=== PATIENT | female | born 1990 | race Hispanic/Latino ===

== ENCOUNTER 2018-01-19 14:59 | Emergency (ER) | payer OTHER, SELFPAY ==
[2018-01-19 15:02] VITALS: BP 123/82; PULSE 83; RESP 15; TEMP 36.3; O2SAT 91
--- NOTE | 2018-01-19 16:40 | ED.GENADULT ---
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 She states that an NG tube was being pulled when it flipped around causing some small amount of bodily fluids to be sprayed in her eyes. Source patient is not noted to be hepatitis or HIV positive. Patient states that her hepatitis B titers and shots are up-to-date. She also reports that her tetanus is up-to-date. She denies any other exposures or concerns at this time. Source labs and paperwork is being completed to patient upstairs Related Data Home Medications Medication Instructions Recorded Confirmed multivitamin with folic acid 1 tab PO DAILY 01/19/18 01/19/18 Allergies Allergy/AdvReac Type Severity Reaction Status Date / Time No Known Drug Allergies Allergy Verified 01/19/18 15:02 Review of Systems <JUAN Carranza - Last Filed: 01/19/18 21:48> Review of Systems Exposure to bodily fluids All systems reviewed & are unremarkable except as noted in HPI and below Constitutional Denies chills, Denies fatigue, Denies fever(s), Denies lethargy and Denies weakness Eyes Denies change in vision, Denies eye discharge, Denies irritation and Denies loss of vision ENT Ears, Nose, Mouth, and Throat: Denies change in voice, Denies neck pain and Denies sore throat Cardiovascular Denies dyspnea and Denies dyspnea on exertion Respiratory Denies cough, Denies dyspnea, Denies dyspnea on exertion and Denies wheezing Gastrointestinal Gastrointestinal: Denies abdominal pain, Denies change in bowel habits, Denies diarrhea, Denies nausea and Denies vomiting Genitourinary Denies hematuria, Denies flank pain, Denies urinary incontinence and Denies urinary urgency Musculoskeletal Denies neck pain Integumentary/Breasts Denies pruritus, Denies erythema, Denies rash and Denies wounds Neurologic Denies confusion, Denies loss of vision and Denies weakness Psychiatric Denies anxiety, Denies confusion, Denies depression, Denies homicidal ideation and Denies suicidal ideation Endocrine Denies fatigue and Denies flushing Allergic/Immunologic Denies wheezing Exam <JUAN Carranza - Last Filed: 01/19/18 21:48> Initial Vital Signs Initial Vital Signs: Vital Signs Temperature 97.4 F L 01/19/18 15:02 Pulse Rate 83 01/19/18 15:02 Respiratory Rate 15 01/19/18 15:02 Blood Pressure 123/82 01/19/18 15:02 Pulse Oximetry 91 01/19/18 15:02 Const General: cooperative and well developed Nutritional Appearance: well nourished Orientation: alert, awake, oriented x3 and not confused HENWV Mouth: oral mucosae normal and moist mucous membranes Eyes General: appearance normal, both eyes and all related structures Eyelids: eyelids normal Conjunctivae: conjunctivae normal Sclera: sclerae normal Pupils: PERRL EOM: EOM intact bilaterally Resp Effort & Inspection: normal respiratory effort, able to speak in complete sentences, no respiratory distress and no use of accessory muscles Auscultation: clear to auscultation bilaterally, no rales, no rhonchi and no wheezes Cardio Rate: regular rate Rhythm: regular rhythm Heart Sounds: no click, no gallops, no murmurs and no rubs Pulses: normal peripheral pulses Skin General: no rashes or lesions noted, No jaundice and No petechiae Neuro General: alert, oriented x3, gait normal and no focal motor deficits Speech: speech normal <Casey Isaac DO - Last Filed: 01/20/18 01:12> Initial Vital Signs Initial Vital Signs: Vital Signs Temperature 97.4 F L 01/19/18 15:02 Pulse Rate 83 01/19/18 15:02 Respiratory Rate 15 01/19/18 15:02 Blood Pressure 123/82 01/19/18 15:02 Pulse Oximetry 91 01/19/18 15:02 Course <JUAN Carranza - Last Filed: 01/19/18 21:48> Orders Ordered: ED Orders 01/19/18 17:37 Alanine Aminotransferase Stat HIV 1 and 2 Antibody Stat Hepatitis Acute Panel Stat Vital Signs - 8 hr 01/19/18 18:38 Pulse Rate 81 Respiratory Rate 18 Blood Pressure [Left Arm] 119/81 Pulse Oximetry 100 <Casey Isaac DO - Last Filed: 01/20/18 01:12> Orders Ordered: ED Orders 01/19/18 17:37 Alanine Aminotransferase Stat HIV 1 and 2 Antibody Stat Hepatitis Acute Panel Stat Vital Signs - 8 hr 01/19/18 18:38 Pulse Rate 81 Respiratory Rate 18 Blood Pressure [Left Arm] 119/81 Pulse Oximetry 100 Medical Decision Making <Lyle LindquistJUAN holley - Last Filed: 01/19/18 21:48> Lab Data Lab Results 01/19/18 01/19/18 Range/Units 17:37 17:37 ALT 69 H (9-52) IU/L HIV 1&2 Antibody Negative (NEGATIVE) MDM Narrative Medical decision making narrative: Small amount of bodily fluids exposure to the mucous membranes of the eyes. Patient irrigated her eyes well after the incident. Patient is not known to be says HIV or hepatitis positive. Low risk of infection at this point. Prophylaxis medications not desired at this timeframe. Hepatitis and HIV labs were drawn and are pending. Patient to follow up with employee health for further evaluation. For any worsening symptoms return emergency room. <Casey Isaac DO - Last Filed: 01/20/18 01:12> Lab Data Lab Results 01/19/18 01/19/18 Range/Units 17:37 17:37 ALT 69 H (9-52) IU/L HIV 1&2 Antibody Negative (NEGATIVE) Discharge Plan Departure Patient Disposition: Home Clinical Impression: History of exposure to hazardous bodily fluids Discharge Date/Time: 01/19/18 18:38 Interventions: ED Discharge Assessment Last Done: 01/19/18 18:38 Instructions: DI for Accidental Exposure to Body Fluids Activity Restrictions/Additional Instructions: Low risk of infection today will hold on prophylactic medications. Laboratory results and titers for hepatitis and HIV were drawn today and are pending. Follow up with [facility] in the next few days for re-evaluation. Source patient labs are also being drawn. For any worsening symptoms return to the emergency room. Prescriptions: No Action multivitamin with folic acid 400 mcg Tablet 1 tab PO DAILY RF: 0 Referrals: Marcial Beck MD [Primary Care Provider] - <Casey Isaac DO - Last Filed: 01/20/18 01:12> Cosign ED Attending Coscruzature Attestation: I was immediately available in the department for consultation. Documentation has been reviewed. I agree with assessment and plan.
[2018-01-19 17:58] LABS: Alanine Aminotransferase 69 IU/L (9-52)
[2018-01-19 18:38] VITALS: BP 119/81; PULSE 81; RESP 18; O2SAT 100
[2018-01-19 18:50] LABS: HIV 1 and 2 Antibody NEGATIVE (NEGATIVE)
[2018-01-22 07:28] LABS: Hepatitis B Surf Ab Qualitativ Reactive (Nonreactive)
[2018-01-22 22:48] LABS: Hepatitis A Antibody IgM NONREACTIVE; Hepatitis Acute Panel Interp 0.02; Hepatitis B Core Antibody IgM NONREACTIVE; Hepatitis B Surface Antigen NONREACTIVE; Hepatitis C Antibody NONREACTIVE
== END 2018-01-19 18:38 | disposition home or self-care (01) ==
PROVIDERS: Emergency Provider Nurse Practitioner Family; Family Provider Family Medicine; PCP Family Medicine
DX: Z77.21 Contact with and (suspected) exposure to potentially hazardous body fluids (principal); Y99.0 Civilian activity done for income or pay
CPT/HCPCS: 36415; 80074; 84460; 86703; 86706; 87522; 99282; 99283

== ENCOUNTER → 2018-01-20 15:00 | Outpatient (CLI) | payer OTHER, SELFPAY | PROVIDERS: Family Provider Family Medicine; PCP Family Medicine | DX: Z23 Encounter for immunization (principal) | CPT/HCPCS: 90471; 90686 ==

== ENCOUNTER → 2019-04-10 14:23 | Outpatient (CLI) | payer OTHER, SELFPAY | PROVIDERS: PCP Family Medicine | DX: Z23 Encounter for immunization (principal) | CPT/HCPCS: 90471; 90686 ==

== ENCOUNTER → 2020-05-10 15:34 | Outpatient (CLI) | payer OTHER, SELFPAY ==
[2020-05-10] MEDS: COVID-19 VACC(MODERNA-1)/PF 100 MCG/0.5 ML VIAL IM (15:40)
== END ==
PROVIDERS: PCP Family Medicine; Visit Provider Internal Medicine
DX: Z23 Encounter for immunization (principal)
CPT/HCPCS: 0011A; 91301

== ENCOUNTER → 2020-05-31 12:55 | Outpatient (CLI) | payer OTHER, SELFPAY ==
[2020-05-31 13:33] LABS: COVID19 -Nasal RAPID Negative (Negative)
[2020-05-31 13:50] LABS: Influenza A - CEPHEID Flu A NEGATIVE (NEGATIVE); Influenza B - CEPHEID Flu B NEGATIVE (NEGATIVE)
== END ==
PROVIDERS: PCP Family Medicine; Visit Provider Physician Assistant
DX: Z20.822 Contact with and (suspected) exposure to COVID-19 (principal); R50.9 Fever, unspecified
CPT/HCPCS: 87502; 87635

== ENCOUNTER → 2020-06-07 15:41 | Outpatient (CLI) | payer OTHER, SELFPAY ==
[2020-06-07] MEDS: COVID-19 VACC #2, MRNA(MOD) 100 MCG/0.5 ML VIAL IM (15:49)
== END ==
PROVIDERS: PCP Family Medicine; Visit Provider Internal Medicine
DX: Z23 Encounter for immunization (principal)
CPT/HCPCS: 0012A; 91301

== ENCOUNTER → 2021-03-29 14:19 | Outpatient (CLI) | payer SELFPAY | PROVIDERS: PCP Family Medicine; Referring Provider Internal Medicine; Visit Provider Internal Medicine | DX: Z23 Encounter for immunization (principal) | CPT/HCPCS: 90471; 90686 ==

== ENCOUNTER → 2022-03-06 14:07 | Outpatient (CLI) | payer OTHER, SELFPAY | PROVIDERS: PCP Family Medicine; Referring Provider Internal Medicine; Visit Provider Internal Medicine | DX: Z23 Encounter for immunization (principal) | CPT/HCPCS: 90471; 90686 ==

== ENCOUNTER → 2023-01-30 11:12 | Outpatient (CLI) | payer OTHER, SELFPAY ==
[2023-01-30 12:16] LABS: Add Manual Diff / Slide Review NO; Basophils Absolute Auto 100 /uL (0-100); Eosinophils Absolute Auto 100 /uL (0-450); Eosinophils Percent Auto 1.2 % (2-4); Hematocrit 42.2 % (36-46); Hemoglobin 12.3 g/dL (12.0-16.0); Lymphocytes Absolute Auto 2300 /uL (1100-4500); Lymphocytes Percent Auto 24.2 % (25-40); Mean Corpuscular HGB Conc 29.2 % (30-36); Mean Corpuscular Hemoglobin 28.7 PG (26-34); Mean Corpuscular Volume 98.3 fL (80-100); Monocytes Absolute Auto 300 /uL (0-900); Monocytes Percent Auto 3.4 % (3-14); Neutrophils Absolute Auto 6600 /uL (1500-7000); Neutrophils Percent Auto 70.2 % (50-75); Platelet Count 148 X10^3/uL (150-400); Red Blood Cell Count 4.29 X10^6/uL (4.0-5.2); Red Cell Distribution Width 13.4 % (11.6-14.8); White Blood Cell Count 9.4 X10^3/uL (4.5-11.0)
[2023-01-30 12:33] LABS: Alanine Aminotransferase 59 IU/L (<35); Albumin Globulin Ratio 1.4 (1.0-2.8); Alkaline Phosphatase 70 U/L (38-126); Aspartate Aminotransferase 54 IU/L (14-36); BUN Creatinine Ratio 20.8 (6-22); Blood Urea Nitrogen 11 mg/dL (7-17); Calcium 9.5 mg/dL (8.4-10.2); Carbon Dioxide 28 mmol/L (22-32); Chloride 101 mmol/L (98-107); Estimated Glomerular Filt Rate > 60 mL/min (>60); Globulin 3.7 g/dL (1.7-4.1); Glucose 101 mg/dL (70-100); HEMOLYSIS 18 (0-50); Potassium 3.9 mmol/L (3.4-5.1); Sodium 138 mmol/L (137-145); Total Protein 8.7 g/dL (6.3-8.2)
[2023-01-30 13:03] LABS: TSH w/ Reflex to FT4 1.45 uIU/mL (0.47-4.68)
== END ==
PROVIDERS: PCP Family Medicine; Referring Provider Family Medicine; Visit Provider Family Medicine
DX: Z00.00 Encounter for general adult medical examination without abnormal findings (principal)
CPT/HCPCS: 80053; 84443; 85025

== ENCOUNTER → 2023-03-28 11:19 | Outpatient (CLI) | payer OTHER, SELFPAY | PROVIDERS: PCP Family Medicine; Referring Provider Family Medicine; Visit Provider Family Medicine | DX: Z23 Encounter for immunization (principal) | CPT/HCPCS: 90471; 90686 ==

== ENCOUNTER → 2024-03-17 12:00 | Outpatient (CLI) | payer OTHER, SELFPAY | PROVIDERS: PCP Family Medicine; Referring Provider Internal Medicine; Visit Provider Internal Medicine | DX: Z23 Encounter for immunization (principal) | CPT/HCPCS: 90471; 90656 ==